=== PATIENT | male | born 1985 | race Caucasian/White ===

== ENCOUNTER 2021-12-16 23:40 | Emergency (ER) | payer BC, OTHER ==
[2021-12-17] MEDS ORDERED: HYDROmorphone 1 MG/ML Syringe IM ONE (00:51)
[2021-12-17] MEDS ORDERED: Ibuprofen 600 MG Tab PO ONE (01:46)
== END 2021-12-17 02:08 | disposition home or self-care (01) ==
LOC: JD.ED 23:40
DX: S82.851A Displaced trimalleolar fracture of right lower leg, initial encounter for closed fracture (principal); Z91.018 Allergy to other foods; W00.0XXA Fall on same level due to ice and snow, initial encounter; Y99.0 Civilian activity done for income or pay
CPT/HCPCS: 29515; 73610; 96372; 99283; A9270; J1170; 99284